=== PATIENT | female | born 2000 | race Caucasian/White ===

== ENCOUNTER → 2021-03-03 | Outpatient (REF) | LOC: COL.LAB 12:43 | DX: Z20.822 Contact with and (suspected) exposure to COVID-19 (principal) ==

== ENCOUNTER → 2021-06-01 | Outpatient (CLI) | payer OTHER ==
[2021-06-01 11:11] LABS: BASO % 0.2 % (0.0-2.0); EOS # 0.1 (0.0-0.7); GRAN % 69.9 % (42.2-75.2); HEMOGLOBIN 11.7 g/dl (12.5-16.0); LYMPH % 23.6 % (20.0-51.0); MEAN CELL VOLUME 86 fl (80.0-100.0); MEAN CORPUSCULAR HEMOGLOBIN 28 pg (27.0-31.0); MEAN CORPUSCULAR HGB CONC 33 g/dl (33.0-37.0); MEAN PLATELET VOLUME 10.1 fl (7.4-10.4); MONO # 0.4 (0.1-0.6); MONO % 5.1 % (1.7-9.3); PLATELET COUNT 307 K/mm3 (130-400); RED BLOOD COUNT 4.16 M/mm3 (4.10-5.30); REDCELL DISTRIBUTION WIDTH-CV 13.9 % (11.5-14.5)
[2021-06-01 11:14] LABS: HEMATOCRIT 35.6 % (37.0-47.0)
[2021-06-01 11:27] LABS: ALBUMIN 3.8 gm/dL (3.5-5.0); BILIRUBIN,TOTAL 0.4 mg/dL (0.0-1.0); C-REACTIVE PROTEIN 1.1 mg/dL (0.0-0.9); CALCIUM 8.8 mg/dL (8.4-10.2); CHOLESTEROL RISK RATIO 3.4; CREATININE, serum 0.78 (0.52-1.25); POTASSIUM 4.2 mmol/L (3.4-5.0); TOTAL PROTEIN 7.2 gm/dL (6.4-8.2)
[2021-06-01 12:01] LABS: ERYTHROCYTE SEDIMENTATION RATE 25 mm/hr (0-20)
[2021-06-02 01:26] LABS: T3 TOTAL 136 ng/dL (35-193)
[2021-06-02 08:15] LABS: ANA SCREEN with REFLEX Negative (Negative)
== END ==
LOC: COL.LAB 10:35
PROVIDERS: Physician Assistant
DX: E03.9 Hypothyroidism, unspecified (principal)

== ENCOUNTER 2022-01-27 11:07 | Emergency (ER) | payer OTHER ==
[~2022-01-27] VITALS: Ht 162.6 cm; Wt 97.7 kg
[2022-01-27 11:17] VITALS: TEMP 97.9
[2022-01-27] MEDS ORDERED: CYMBALTA 30MG30 MG PO (11:20)
[2022-01-27] MEDS ORDERED: JUNEL FE 1/20 21 TAB PO (11:20)
[2022-01-27] MEDS ORDERED: MOBIC15 MG PO (11:20)
[2022-01-27] MEDS ORDERED: PERCOCET 325 MG1 TA2 PO (11:21)
[2022-01-27 12:50] VITALS: BP 129/79; PULSE 84
== END 2022-01-27 12:50 | disposition home or self-care (01) ==
LOC: COL.ER 11:07
DX: G43.909 Migraine, unspecified, not intractable, without status migrainosus (principal)
CPT/HCPCS: J1885; J2765